=== PATIENT | male | born 1960 ===

== ENCOUNTER 2017-04-05 06:24 | Day surgery (SDC) | payer BC ==
[2017-03-11 07:38] VITALS: BMI 32.3
[2017-04-05] MEDS ORDERED: Lidocaine 2% Jelly (Uro-Jet) ONE (10:22)
[2017-04-05] MEDS ORDERED: cefTRIAXone (Rocephin) 1 gm Inj ONE (10:22)
[2017-04-05] MEDS ORDERED: Midazolam 2 MG/2 ML VIAL ONE (11:28)
[2017-04-05] MEDS ORDERED: Propofol 10 mg/ml Inj (20 ML) ONE (11:28)
[2017-04-05 12:31] VITALS: BP 141/91; PULSE 77; RESP 18; TEMP 97.7; O2SAT 93
--- NOTE | 2017-04-05 21:36 | OP ---
PROCEDURE DATE: 04/05/2017 PREOPERATIVE DIAGNOSES: Benign prostatic hypertrophy and bladder stones. POSTOPERATIVE DIAGNOSES: Benign prostatic hypertrophy and bladder stones. PROCEDURE: Cystoscopy, evacuation of bladder calculi, fulguration of prostatic bleeding, dilation of urethral stenosis. ATTENDING SURGEON: Ata Matthew MD TYPE OF ANESTHESIA: General. SPECIMEN: Bladder stones were sent to pathology. DRAINS: 20-Belizean two-way Covarrubias catheter. COMPLICATIONS: There were none. OPERATIVE PROCEDURE: After informed consent was obtained, the patient was taken to operating room, placed on operating table, and anesthesia was administered. The patient was placed in the dorsal lithotomy position, and prepped and draped in the usual sterile fashion. On exam, the patient has a hypospadiac meatus. Initial attempts to pass the 22-Belizean cystoscope were difficulty. At this point, male urethral sounds were obtained. The urethra was then dilated sequentially to 22-Belizean. At this point, the 22-Belizean scope could be advanced into the hypospadiac meatus and advanced proximally. There were no further urethral strictures noted. However, the urethra was somewhat narrowed. The scope was able to be advanced until the prostatic urethra was reached. Exam of the prostatic urethra revealed a markedly enlarged trilobar hypertrophy of the prostate with hypervascular prostatic mucosa. The scope was able to be advanced into the bladder, and a full survey inspection was performed. There were multiple small calculi noted. The bladder was trabeculated, grade 1 to 2. With fully distending the bladder, the ureteral orifices could be visualized and appeared within normal limits. There were multiple small stones and a few larger stones which were able to be irrigated out of the bladder through the cystoscope. It has possible stones that were underlying the median lobe which was growing into the bladder. However, after multiple irrigations, the small stones underneath were able to be irrigated out of the bladder. There were no bladder tumors or other foreign bodies noted. At this point, the scope was withdrawn to the level of the verumontanum. There was some active bleeding noted from the hypervascular mucosa of the prostate. A Bovie electrode was then passed and the bleeding sites were then cauterized. A final inspection was made and there was good hemostasis. At this point, the bladder was drained. The cystoscope was withdrawn. A 20-Bel[place]an two-way Covarrubias catheter was then passed and placed to straight bladder drainage. The patient tolerated the procedure well and he was returned to the supine position, and taken to the recovery room awake in stable condition. Ata Matthew MD
== END 2017-04-05 14:05 | disposition home or self-care (01) ==
LOC: SDS 06:24
PROVIDERS: ATTEND Urology
DX: N21.0 Calculus in bladder (principal); N40.0 Benign prostatic hyperplasia without lower urinary tract symptoms; I10 Essential (primary) hypertension; N35.9 Urethral stricture, unspecified
CPT/HCPCS: 52214; 52317; 88300; J0696; J2001; J2250; J2405; J2704; J3010; J7120